=== PATIENT | male | born 1990 | race Caucasian/White ===

== ENCOUNTER 2017-12-26 20:02 | Emergency (ER) | payer OTHER ==
[2017-12-26 20:24] LABS: MUDS CUTOFF CONCENTRATIONS CUTOFF CONC BELOW:
[2017-12-26 20:35] LABS: BILIRUBIN,URINE NEGATIVE (NEGATIVE); GLUCOSE, URINE (UA) NEGATIVE (NEGATIVE); KETONES,URINE (UA) 15 mg/dL (NEGATIVE); LEUKOCYTE ESTERASE, URINE NEGATIVE (NEGATIVE); NITRITE,URINE NEGATIVE (NEGATIVE); OCCULT BLOOD,URINE NEGATIVE (NEGATIVE); PROTEIN,URINE NEGATIVE (NEGATIVE); UROBILINOGEN,URINE 0.2 (NORMAL) E.U./dL (NORMAL)
[2017-12-26 20:36] LABS: CLARITY,URINE CLEAR (CLEAR)
[2017-12-26 20:44] LABS: AMPHETAMINE SCREEN,URINE POSITIVE (NEGATIVE); BENZODIAZEPINES SCREEN, URINE NEGATIVE (NEGATIVE); COCAINE SCREEN URINE NEGATIVE (NEGATIVE); METHADONE SCREEN, URINE NEGATIVE (NEGATIVE); METHAMPHETAMINES SCREEN, URINE POSITIVE (NEGATIVE); OPIATE SCREEN, URINE NEGATIVE (NEGATIVE); OXYCODONE SCREEN, URINE NEGATIVE (NEGATIVE); PROPOXYPHENE SCREEN, URINE NEGATIVE (NEGATIVE); TRICYCLIC ANTIDEPRESSANT,URINE NEGATIVE (NEGATIVE)
[2017-12-26 20:45] LABS: BASOPHILS % (AUTO) 0.6 %; EOSINOPHILS # (AUTO) 0.3 10^3/uL (0.0-0.7); EOSINOPHILS % (AUTO) 4.4 %; HGB - HEMOGLOBIN 13.2 g/dL (14.0-18.0); LYMPHOCYTES # (AUTO) 1.8 10^3/uL (1.5-3.5); LYMPHOCYTES % (AUTO) 29.2 %; MEAN CORPUSCULAR HEMOGLOBIN 30.7 pg (27.0-31.0); MEAN CORPUSCULAR HGB CONC 33.4 g/dL (32.0-36.0); MEAN CORPUSCULAR VOLUME 91.8 fL (80.0-94.0); MEAN PLATELET VOLUME 8.1 fL (7.4-11.4); MONOCYTES # (AUTO) 0.8 10^3/uL (0.0-1.0); MONOCYTES % (AUTO) 12.3 %; NEUTROPHILS # (AUTO) 3.3 10^3/uL (1.5-6.6); NEUTROPHILS % (AUTO) 53.5 %; PLT - PLATELET COUNT 207 10^3/uL (130-450); RED BLOOD COUNT 4.28 10^6/uL (4.70-6.10); RED CELL DISTRIBUTION WIDTH 13.1 % (12.0-15.0); WHITE BLOOD COUNT 6.1 x10^3/uL (4.8-10.8)
[2017-12-26 21:01] LABS: ALBUMIN 4.6 g/dL (3.2-5.5); ALBUMIN/GLOBULIN RATIO 1.8 (1.0-2.2); ALKALINE PHOSPHATASE 46 IU/L (42-121); ALT ALANINE AMINOTRANSFERASE 18 IU/L (10-60); AST ASPARTATE AMINOTRANSFERASE 18 IU/L (10-42); BILIRUBIN,TOTAL 0.3 mg/dL (0.2-1.0); BUN - BLOOD UREA NITROGEN 17 mg/dL (6-20); CALCIUM 8.5 mg/dL (8.5-10.3); CARBON DIOXIDE - CO2 26 mmol/L (21-32); CHLORIDE 100 mmol/L (101-111); GFR - MDRD 90 (>89); GLUCOSE 104 mg/dL (70-100); LIPASE 24 U/L (22-51); SALICYLATE < 6.0 mg/dL; SODIUM 135 mmol/L (135-145); TOTAL PROTEIN 7.2 g/dL (6.7-8.2)
[2017-12-26 21:03] LABS: ACETAMINOPHEN < 10 ug/mL (10-30)
--- NOTE | 2017-12-26 21:27 | ED Physician Documentation ---
PD HPI MHE - Stated complaint Stated Complaint: MHE - Chief complaint Chief Complaint: MHE - History obtained from History obtained from: Patient, Family - History of Present Illness Primary symptom: Psychosis, Anxiety Timing - onset: How many weeks ago (2) Contributing factors: Substance abuse - drugs Similar symptoms before: Has not had sx before Recently seen: Not recently seen - Additional information Additional information: Patient is a 27 year old male who is presenting to the emergency department for delusions and agitation. According to patient and family, patient has had multiple episodes of hearing voices and erratic behavior. He does admit to using meth but he never had a problem with hearing voices in the past. Review of Systems Constitutional: denies: Fever, Chills Eyes: reports: Reviewed and negative GI: denies: Nausea, Vomiting Psychiatric: reports: Hallucinations, Anxiety, Insomnia. denies: Depressed, Suicidal, Homicidal Immunocompromised: denies: Immunocompromised PD PAST MEDICAL HISTORY - Past Medical History Past Medical History: No - Past Surgical History Past Surgical History: No - Present Medications Home Medications: Ambulatory Orders Medication Instructions Recorded Confirmed No Known Home Medications [No 12/26/17 12/26/17 Known Home Medications] - Allergies Allergies/Adverse Reactions: Allergies Allergy/AdvReac Type Severity Reaction Status Date / Time No Known Drug Allergies Allergy Verified 12/26/17 20:17 - Social History Does the pt smoke?: Yes Smoking Status: Current every day smoker Does the pt drink ETOH?: Yes Does the pt have substance abuse?: No Substance Use and Type: Meth - Immunizations Immunizations are current?: No - POLST Patient has POLST: No PD ED PE NORMAL - Vitals Vital signs reviewed: Yes - General General: Alert and oriented X 3, No acute distress - HEENT HEENT: Atraumatic - Neck Neck: Supple, no meningeal sign - Cardiac Cardiac: RRR - Respiratory Respiratory: No respiratory distress - Abdomen Abdomen: Non distended - Derm Derm: Normal color - Extremities Extremities: No deformity - Neuro Neuro: Alert and oriented X 3, No motor deficit, Normal speech Eye Opening: Spontaneous Motor: Obeys Commands Verbal: Oriented GCS Score: 15 PD ED PE EXPANDED - Psych Psych: Anxious, Auditory hallucinations, Delusions Results - Vitals Vitals: Vital Signs - 24 hr 12/26/17 20:10 Temperature 37.1 C Heart Rate 108 H Respiratory 18 Rate Blood Pressure 119/83 H O2 Saturation 98 Oxygen O2 Source Room air - Labs Labs: Laboratory Tests 12/26/17 12/26/17 12/26/17 20:15 20:15 20:39 WBC RBC Hgb Hct MCV MCH MCHC RDW Plt Count MPV Neut # Lymph # Anson # Eos # Baso # Absolute Nucleated RBC Nucleated RBC % Sodium 135 Potassium 3.8 Chloride 100 L Carbon Dioxide 26 Anion Gap 9.0 BUN 17 Creatinine 1.0 Estimated GFR (MDRD) 90 Glucose 104 H Calcium 8.5 Total Bilirubin 0.3 AST 18 ALT 18 Alkaline Phosphatase 46 Total Protein 7.2 Albumin 4.6 Globulin 2.6 Albumin/Globulin Ratio 1.8 Lipase 24 TSH Urine Color YELLOW Urine Clarity CLEAR Urine pH 6.0 Ur Specific [place] 1.025 Urine Protein NEGATIVE Urine Glucose (UA) NEGATIVE Urine Ketones 15 H Urine Occult Blood NEGATIVE Urine Nitrite NEGATIVE Urine Bilirubin NEGATIVE Urine Urobilinogen 0.2 (NORMAL) Ur Leukocyte Esterase NEGATIVE Ur Microscopic Review NOT INDICATED Urine Culture Comments NOT INDICATED Salicylates < 6.0 Urine Opiates Screen NEGATIVE Ur Oxycodone Screen NEGATIVE Urine Methadone Screen NEGATIVE Ur Propoxyphene Screen NEGATIVE Acetaminophen < 10 L Ur Barbiturates Screen NEGATIVE Ur Tricyclics Screen NEGATIVE Ur Phencyclidine Scrn NEGATIVE Ur Amphetamine Screen POSITIVE H U Methamphetamines Scrn POSITIVE H U Benzodiazepines Scrn NEGATIVE Urine Cocaine Screen NEGATIVE U Cannabinoids Screen NEGATIVE Ethyl Alcohol 88.0 12/26/17 12/26/17 12/26/17 20:39 20:39 22:53 WBC 6.1 RBC 4.28 L Hgb 13.2 L Hct 39.4 L MCV 91.8 MCH 30.7 MCHC 33.4 RDW 13.1 Plt Count 207 MPV 8.1 Neut # 3.3 Lymph # 1.8 Anson # 0.8 Eos # 0.3 Baso # 0.0 Absolute Nucleated RBC 0.00 Nucleated RBC % 0.0 Sodium Potassium Chloride Carbon Dioxide Anion Gap BUN Creatinine Estimated GFR (MDRD) Glucose Calcium Total Bilirubin AST ALT Alkaline Phosphatase Total Protein Albumin Globulin Albumin/Globulin Ratio Lipase TSH 0.76 Urine Color Urine Clarity Urine pH Ur Specific [place] Urine Protein Urine Glucose (UA) Urine Ketones Urine Occult Blood Urine Nitrite Urine Bilirubin Urine Urobilinogen Ur Leukocyte Esterase Ur Microscopic Review Urine Culture Comments Salicylates Urine Opiates Screen Ur Oxycodone Screen Urine Methadone Screen Ur Propoxyphene Screen Acetaminophen Ur Barbiturates Screen Ur Tricyclics Screen Ur Phencyclidine Scrn Ur Amphetamine Screen U Methamphetamines Scrn U Benzodiazepines Scrn Urine Cocaine Screen U Cannabinoids Screen Ethyl Alcohol 32.8 PD MEDICAL DECISION MAKING - ED course Complexity details: reviewed old records, reviewed results, re-evaluated patient , considered differential, d/w patient, d/w family, d/w client experience consultant ED course: Patient was seen and examined at bedside. labs were drawn and urine was collected. while meth was likely contributing to patient's situation an underlying psychiatric break could not be ruled out. [facility] was contacted to come evaluate the patient. patient was getting a bit anxious and was treated with zyprexa 5mg orally. After evaluation by [facility] patient was deemed voluntary after lengthy discussion with the patient and his family. patient had admitted to more frequent meth abuse and the family was unaware. Patient still wanted to talk to social work and stayed the night. Patient was medically clear and pending social work. Departure - Departure Clinical Impression: Methamphetamine abuse Condition: Stable Instructions: Abuse Meth Abuse and Addiction
[2017-12-26] MEDS ORDERED: OLANZapine ODT 5 MG TABLET TL STA (22:31)
[2017-12-27 08:45] VITALS: BP 106/71
--- NOTE | 2017-12-27 10:26 | ED Physician Documentation ---
ED Addendum - Addendum Addendum: 12/27/17 10:24 Patient seen by social work and he declined hospitalization or respite care. He is agreeable to counseling. I talked with him as well and unclear whether he is having psychiatric problems or he has had difficulty with sleep and also has been having some drug and alcohol use so may be having symptoms from that. I suggested with him to eat well, regular exercise, no drugs or alcohol, consider starting vitamin D daily, and to use Ativan at night for sleep just if needed for the next week or so. He should see how well he is feeling with those. He could also initiate counseling regarding some depression and substance abuse and was given references from the social worker [facility]. He denies any suicidal ideation.
== END 2017-12-27 10:35 | disposition home or self-care (01) ==
LOC: ED 20:02
DX: F15.10 Other stimulant abuse, uncomplicated (principal); F17.200 Nicotine dependence, unspecified, uncomplicated
CPT/HCPCS: 36415; 80053; 80306; 80307; 80320; 80329; 81003; 83690; 84443; 85025; 99283; 99284; A9270; 81001; 87086

== ENCOUNTER 2018-05-17 09:21 | Outpatient (CLI) | payer OTHER ==
[2018-05-17 13:03] LABS: BASOPHILS % (AUTO) 0.6 %; EOSINOPHILS # (AUTO) 0.1 10^3/uL (0.0-0.7); EOSINOPHILS % (AUTO) 2.2 %; HGB - HEMOGLOBIN 14.3 g/dL (14.0-18.0); LYMPHOCYTES # (AUTO) 1.1 10^3/uL (1.5-3.5); LYMPHOCYTES % (AUTO) 24.4 %; MEAN CORPUSCULAR HEMOGLOBIN 31.4 pg (27.0-31.0); MEAN CORPUSCULAR HGB CONC 34.2 g/dL (32.0-36.0); MEAN CORPUSCULAR VOLUME 91.8 fL (80.0-94.0); MONOCYTES # (AUTO) 0.6 10^3/uL (0.0-1.0); MONOCYTES % (AUTO) 11.8 %; NEUTROPHILS # (AUTO) 2.9 10^3/uL (1.5-6.6); RED BLOOD COUNT 4.55 10^6/uL (4.70-6.10); RED CELL DISTRIBUTION WIDTH 13.4 % (12.0-15.0); WHITE BLOOD COUNT 4.7 x10^3/uL (4.8-10.8)
[2018-05-17 13:17] LABS: THYROID STIMULATING HORMONE 1.63 uIU/mL (0.34-5.60)
[2018-05-17 13:25] LABS: FERRITIN 62.5 ng/mL (23.9-336.2)
[2018-05-17 13:28] LABS: FOLATE 13.45 ng/mL (5.90 - >24.8)
[2018-05-17 14:20] LABS: PLATELET MORPHOLOGY PLATELET CLUMPING (NORMAL)
[2018-05-17 14:22] LABS: RBC MORPHOLOGY (MULTIPLE) NORMAL APPEARANCE (NORMAL)
[2018-05-17 14:23] LABS: PLATELET ESTIMATE, MANUAL NORMAL (130-450,000) (NORMAL)
[2018-05-17 15:04] LABS: ALBUMIN 4.7 g/dL (3.2-5.5); ALBUMIN/GLOBULIN RATIO 1.6 (1.0-2.2); BILIRUBIN,TOTAL 0.7 mg/dL (0.2-1.0); CALCIUM 9.5 mg/dL (8.5-10.3); CREATININE 0.9 mg/dL (0.6-1.2); TOTAL PROTEIN 7.6 g/dL (6.7-8.2)
== END 2018-05-17 09:22 | disposition home or self-care (01) ==
LOC: LAB.WCP 09:21
PROVIDERS: ATTEND Family Medicine
DX: D64.9 Anemia, unspecified (principal); F10.20 Alcohol dependence, uncomplicated
CPT/HCPCS: 36415; 80053; 82607; 82728; 82746; 83540; 84443; 84466; 85025; 85044

== ENCOUNTER 2019-04-21 08:00 | Outpatient (CLI) | payer OTHER | END 2019-04-21 23:59 | disposition home or self-care (01) | LOC: LAB.R 08:00 | PROVIDERS: ATTEND Physician Assistant Medical | DX: J02.0 Streptococcal pharyngitis (principal) | CPT/HCPCS: 87070 ==

== ENCOUNTER 2020-05-19 08:48 | Emergency (ER) | payer OTHER ==
[2020-05-19 09:39] VITALS: BP 151/93
[2020-05-19] MEDS ORDERED: BUFFERED LIDOCAINE 10 ML SYRINGE SUBQ STA (09:47)
--- NOTE | 2020-05-19 09:48 | ED Physician Documentation ---
PD HPI UPPER EXT INJURY - Stated complaint Stated Complaint: LT THUMB LAC - Chief complaint Chief Complaint: Laceration - History obtained from History obtained from: Patient (29-year-old gentleman up-to-date on tetanus. He is right-hand dominant. He was at work and accidentally cut himself with a knife to the left hand just prior to arrival. No other injury. Pain is minimal.) PD PAST MEDICAL HISTORY - Past Surgical History Past Surgical History: No - Present Medications Home Medications: Ambulatory Orders Medication Instructions Recorded Confirmed Cholecalciferol (Vitamin D3) 2,000 unit PO DAILY #30 capsule 12/27/17 [Vitamin D] Lorazepam [Ativan] 1 mg PO Q8H PRN #10 tablet 12/27/17 - Allergies Allergies/Adverse Reactions: Allergies Allergy/AdvReac Type Severity Reaction Status Date / Time No Known Drug Allergies Allergy Verified 05/19/20 09:39 - Social History Does the pt smoke?: Yes Smoking Status: Current every day smoker Does the pt drink ETOH?: Yes Does the pt have substance abuse?: No - Immunizations Immunizations are current?: No - POLST Patient has POLST: No PD ED PE NORMAL - Vitals Vital signs reviewed: Yes - General General: Alert and oriented X 3, No acute distress - HEENT HEENT: PERRL, EOMI - Back Back: No CVA TTP, No spinal TTP - Extremities Extremities: Other (2 cm laceration on the proximal left thumb, palmar side at the level of the MCP. Normal neurovascular function at the tip on initial evaluation. Tendon function will be assessed after anesthetic.) - Neuro Neuro: Alert and oriented X 3, Normal speech Results - Vitals Vitals: Vital Signs - 24 hr 05/19/20 09:36 Temperature 36.7 C Heart Rate 117 H Respiratory 20 Rate Blood Pressure 151/93 H O2 Saturation 98 Oxygen O2 Source Room air Procedures - Laceration (location) L hand Length in cm: 2 Wound type: Linear, Into subcut fat Neurovascular status: Sensory intact, Motor intact Tendon involvement: Tendon intact Anesthesia: Lidocaine 1%, With bicarb Wound Preparation: Irrigated copiously NS Skin layer closure: Nylon, Interrupted, Size #-0 - enter number (4-0), Sutures - enter # (5) Other: Tetanus UTD Complexity: Simple Departure - Departure Disposition: 01 Home, Self Care Clinical Impression: Laceration Condition: Good Record reviewed to determine appropriate education?: Yes Instructions: ED Laceration Hand Comments: Come back for any signs of infection which would include: Redness, swelling, drainage, increased pain, or fevers. You can wash it soap and water. Keep it covered and moist with bacitracin ointment which is available over the counter; avoid neosporin. Follow-up with your physician in about 14 days for suture removal.
== END 2020-05-19 10:15 | disposition home or self-care (01) ==
LOC: ED 08:48
DX: S61.012A Laceration without foreign body of left thumb without damage to nail, initial encounter (principal); W26.0XXA Contact with knife, initial encounter; Y99.0 Civilian activity done for income or pay; F17.200 Nicotine dependence, unspecified, uncomplicated
CPT/HCPCS: 12001; 99281; 99283

== ENCOUNTER 2020-05-25 08:28 | Emergency (ER) | payer OTHER ==
[2020-05-25] MEDS ORDERED: ACETAMINOPHEN 325 MG TABLET PO STA (09:29)
[2020-05-25] MEDS ORDERED: IBUPROFEN 600 MG TABLET PO STA (09:29)
[2020-05-25] MEDS ORDERED: SULFAMETH/TRIMETH DS 800/160 MG TABLET PO STA (09:30)
--- NOTE | 2020-05-25 09:31 | ED Physician Documentation ---
PD HPI WOUND RECHECK - Stated complaint Stated Complaint: LT THUMB LAC SWELLING,REDNESS,PX - Chief complaint Chief Complaint: Laceration - Histroy obtained from History obtained from: Patient - History of Present Illness Location: Left Hand Timing - onset: How many weeks ago (had laceration of the hand a week ago with sutures. Started to have redness around the edge of it with faint white blister at edge of 2 suture holes yesterday. Tender at wound.) Associated symptoms: Redness. No: Swelling Similar symptoms before: Has not had sx before Recently seen: Emergency Dept (1 week ago) Review of Systems Constitutional: denies: Fever, Chills, Myalgias Neurologic: denies: Focal weakness, Numbness PD PAST MEDICAL HISTORY - Past Medical History Past Medical History: Yes Cardiovascular: None Respiratory: None Neuro: None Endocrine/Autoimmune: None GI: None : None HEENT: None Psych: Schizophrenia Musculoskeletal: None Derm: Eczema - Past Surgical History Past Surgical History: No - Present Medications Home Medications: Ambulatory Orders Medication Instructions Recorded Confirmed Cholecalciferol (Vitamin D3) 2,000 unit PO DAILY #30 capsule 12/27/17 [Vitamin D] Lorazepam [Ativan] 1 mg PO Q8H PRN #10 tablet 12/27/17 Naproxen 500 mg PO BID #15 tablet 05/25/20 Sulfamethox/Trimeth 800/160 1 each PO BID #14 tablet 05/25/20 [Bactrim Ds 800/160] - Allergies Allergies/Adverse Reactions: Allergies Allergy/AdvReac Type Severity Reaction Status Date / Time No Known Drug Allergies Allergy Verified 05/25/20 08:33 - Social History Does the pt smoke?: Yes Smoking Status: Current every day smoker Does the pt drink ETOH?: Yes ETOH Use: Liquor Does the pt have substance abuse?: No - Immunizations Immunizations are current?: Yes - POLST Patient has POLST: No PD ED PE NORMAL - Vitals Vital signs reviewed: Yes - General General: Alert and oriented X 3, No acute distress, Well developed/nourished - Derm Derm: Normal color, Warm and dry - Extremities Extremities: Other (left thumb with sutures intact, wound closed and edges adherent. There is some mild redness around the whole of the wound. At edge of 2 of the suture thread holes is small white superficial blister 2-3 mm size, c/w stitch abscess very superficially. ) - Neuro Neuro: Alert and oriented X 3, No motor deficit, No sensory deficit Results - Vitals Vitals: Vital Signs - 24 hr 05/25/20 05/25/20 08:33 09:37 Temperature 36.6 C 37.2 C Heart Rate 99 77 Respiratory 16 16 Rate Blood Pressure 126/79 117/74 O2 Saturation 99 100 Oxygen O2 Source Room air - Labs Labs: Microbiology 05/25/20 09:23 Wound Culture - Preliminary Hand - Left Procedures - Suture/staple Removal (location) left thumb Suture/staple removal: # sutures (all), Infected. No: Dehiscence, Retained FB Departure - Departure Disposition: 01 Home, Self Care Clinical Impression: Wound infection Condition: Stable Record reviewed to determine appropriate education?: Yes Instructions: ED Wound Check Sutr Removal Infec Prescriptions: Sulfamethox/Trimeth 800/160 [Bactrim Ds 800/160] 1 each PO BID #14 tablet Naproxen 500 mg PO BID #15 tablet Comments: Warm compresses to the area periodically or soaks to help improve blood flow and dry out the infection. Bactrim antibiotic twice daily for a week. Naproxen anti-inflammatory as well. Allow drainage to come out from the small hole. You can use the Steri-Strips on the rest of the sutured laceration. Recheck if not improved well over the next 2 to 3 days. The culture will result in about 2 days and will call if we need to change the antibiotics. Discharge Date/Time: 05/25/20 09:44
[2020-05-25 09:38] VITALS: BP 117/74
== END 2020-05-25 09:44 | disposition home or self-care (01) ==
LOC: ED 08:28
DX: T81.41XA Infection following a procedure, superficial incisional surgical site, initial encounter (principal); Y83.8 Other surgical procedures as the cause of abnormal reaction of the patient, or of later complication, without mention of misadventure at the time of the procedure; Z48.02 Encounter for removal of sutures; F17.200 Nicotine dependence, unspecified, uncomplicated
CPT/HCPCS: 87070; 87205; 99282; 99283; A9270; 87181

== ENCOUNTER 2020-12-18 20:24 | Outpatient (CLI) | payer OTHER | END 2020-12-18 20:25 | disposition EMS.NT | LOC: EMS 20:24 | DX: Z04.1 Encounter for examination and observation following transport accident (principal); M25.562 Pain in left knee ==

== ENCOUNTER 2020-12-18 21:20 | Emergency (ER) | payer OTHER ==
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
--- OUTSIDE RECORDS SUMMARY | 2020-12-18 22:05 | EXTERNAL MEDICAL SUMMARY RPT | Continuity of Care Document ---
:1990 Demographics Phone Unavailable Preferred Language Unknown Marital Status Unknown Congregational Affiliation Unknown Race Unknown Ethnic Group Unknown Author Organization [facility] Address [address] [place] [address] Phone Social History date description facility [phone]
[2020-12-18] MEDS ORDERED: BACITRACIN ZINC OINT 1 PACKET TOP STA (22:08)
[2020-12-18] MEDS ORDERED: KETOROLAC 60 MG/2 ML VIAL IM STA (22:11)
[2020-12-18 23:20] VITALS: BP 136/75
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
== END 2020-12-18 23:19 | disposition home or self-care (01) ==
LOC: ED 21:20
DX: S80.02XA Contusion of left knee, initial encounter (principal); V13.4XXA Pedal cycle driver injured in collision with car, pick-up truck or van in traffic accident, initial encounter; Y93.55 Activity, bike riding; M25.532 Pain in left wrist; F17.200 Nicotine dependence, unspecified, uncomplicated
CPT/HCPCS: 73100; 73564; 96372; 99284; A9270

== ENCOUNTER 2020-12-23 18:39 | Outpatient (CLI) | payer OTHER ==
--- NOTE | 2020-12-23 16:14 | XRAY Report ---
PROCEDURE: Knee 2 View BILAT INDICATIONS: NON-TRAUMATIC RUPTURE OF TENDON OF L PATELLA TECHNIQUE: 2 views of the left and right knee(s) were acquired. COMPARISON: None. FINDINGS: No fracture identified. On the left, no definite joint effusion. Anterior soft tissue swelling. On the right, no joint space narrowing. Trace joint effusion. IMPRESSION: Left knee anterior soft tissue swelling. This could be further assessed with MRI. Trace right knee effusion. Reviewed by: Alfonzo Irwin MD on 12/23/2020 4:13 PM PDT Approved by: Alfonzo Irwin MD on 12/23/2020 4:13 PM PDT Station ID: [id number]
== END 2020-12-23 23:59 | disposition home or self-care (01) ==
LOC: DI.N 18:39
PROVIDERS: ATTEND Physician Assistant
DX: M25.462 Effusion, left knee (principal)

== ENCOUNTER 2021-01-07 13:40 | Emergency (ER) | payer OTHER ==
[2021-01-07] MEDS ORDERED: BUFFERED LIDOCAINE 10 ML SYRINGE SUBQ STA (14:02)
[2021-01-07] MEDS ORDERED: TETANUS/DIPHTHERIA/PERTUSSIS 0.5 ML SYRINGE IM ONE (14:02)
[2021-01-07] MEDS ORDERED: BACITRACIN ZINC OINT 1 PACKET TOP STA (14:02)
--- NOTE | 2021-01-07 14:05 | ED Physician Documentation ---
History of Present Illness - Stated complaint Stated Complaint: RT INDEX INJURY - Chief complaint Chief Complaint: Laceration - Additonal information Additional information: 30-year-old male presents emergency department for evaluation of the right distal index finger laceration sustained when using a skill saw. He has a laceration on the radial side distal to the DIP that extends into the nailbed. Unknown last tetanus. Patient is right-hand dominant. His distal fingertip is numb though flexion extension against resistance is preserved. Review of Systems Constitutional: reports: Reviewed and negative Eyes: reports: Reviewed and negative Nose: reports: Reviewed and negative Throat: reports: Reviewed and negative Cardiac: reports: Reviewed and negative Respiratory: reports: Reviewed and negative GI: reports: Reviewed and negative : reports: Reviewed and negative Skin: reports: Laceration (s) (Right index finger) PD PAST MEDICAL HISTORY - Past Medical History Past Medical History: Yes Cardiovascular: None Respiratory: None Neuro: None Endocrine/Autoimmune: None GI: None : None HEENT: None Psych: Schizophrenia, ADD/ADHD Musculoskeletal: None Derm: Eczema - Past Surgical History Past Surgical History: No - Present Medications Home Medications: Ambulatory Orders Medication Instructions Recorded Confirmed Atomoxetine HCl [Strattera] 40 mg PO DAILY PM 12/18/20 12/18/20 Atomoxetine HCl [Strattera] 80 mg PO DAILY 12/18/20 12/18/20 Ibuprofen [Motrin] 600 mg PO Q6H PRN #30 tab 12/18/20 Bacitracin Zinc Oint 1 applic TOP BID #1 gm 01/07/21 - Allergies Allergies/Adverse Reactions: Allergies Allergy/AdvReac Type Severity Reaction Status Date / Time quetiapine [From Seroquel] AdvReac Unknown Verified 01/07/21 13:45 - Social History Does the pt smoke?: No Smoking Status: Never smoker Does the pt drink ETOH?: No Does the pt have substance abuse?: No - Immunizations Immunizations are current?: Yes - POLST Patient has POLST: No PD ED PE EXPANDED - Extremities Extremities: Right finger(s) (1.5 cm laceration distal index finger radial side distal to the DIP. dital tip with numbness. normal flexion/extension against resistance) Results - Vitals Vitals: Vital Signs - 24 hr 01/07/21 13:45 Temperature 36.5 C Heart Rate 89 Respiratory 16 Rate Blood Pressure 132/70 H O2 Saturation 98 Oxygen O2 Source Room air Procedures - Laceration (location) right index finger Wound type: Linear, Into subcut fat, Clean Neurovascular status: Motor intact, Vascular intact. No: Sensory intact Tendon involvement: Tendon intact Anesthesia: Lidocaine 1% Wound preparation: Chlorhexadine, Irrigated copiously NS Skin layer closure: Interrupted, Size #-0 - enter number (4), Sutures - enter # (3) Other: Patient tolerated well, No complications, Tetanus UTD, Other (Distal tip radial side remains numb both before and after procedure) PD MEDICAL DECISION MAKING - ED course Complexity details: reviewed results, re-evaluated patient, d/w patient ED course: 30-year-old male presents emergency department for evaluation of a right distal index finger laceration sustained when using a skill saw at his job. Laceration is on the radial side of the digit. The distal tip is somewhat numb therefore I do suspect he likely has lacerated the nerve. However he has preserved flexion extension and no evidence of tendon injury. X-ray did not reveal any fracture. Tetanus was updated today. Wound was closed in with 3 sutures. Routine wound care and emergent return precautions discussed. 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 [employer] work excuse given as well as completing appropriate L&I paperwork. Departure - Departure Disposition: 01 Home, Self Care Clinical Impression: Finger laceration Qualifiers: Encounter type: initial encounter Finger: index finger Damage to nail status: without damage Foreign body presence: without foreign body Laterality: right Qualified Code(s): S61.210A - Laceration without foreign body of right index finger without damage to nail, initial encounter Condition: Stable Record reviewed to determine appropriate education?: Yes Instructions: ED Laceration Hand Prescriptions: Bacitracin Zinc Oint 1 applic TOP BID #1 gm Comments: Your suture should be removed in 7 to 10 days. In 24 hours you may remove the dressing wash gently with warm soap and water, apply any antibiotic ointment and a simple bandage. Your tetanus is up-to-date. Please attempt to keep your wound clean and dry. Do not submerge it in dirty dishwater or bath water. Return to the emergency department if you have any concerns of infection such as redness, fevers milky drainage increased pain. 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 You are cleared to return to work without restrictions on 17 January. Therefore you will miss 5 days of work next week.
--- NOTE | 2021-01-07 14:15 | XRAY Report ---
PROCEDURE: Finger(s) RT INDICATIONS: laceration after skill saw TECHNIQUE: One view of right hand and 2 views of the second finger(s) acquired. COMPARISON: None FINDINGS: Bones: No fractures or dislocations. No suspicious bony lesions. Soft tissues: Laceration over radial aspect of distal second digit is seen at the level of second di stal phalangeal tuft. No suspicious soft tissue calcifications. IMPRESSION: Lateral distal second finger laceration. No acute second finger fracture or dislocation. No radiopaqu e foreign body. Reviewed by: Aki Ford MD on 01/07/2021 2:14 PM PDT Approved by: Aki Ford MD on 01/07/2021 2:14 PM PDT Station ID: [id number]
[2021-01-07 15:07] VITALS: BP 118/70
== END 2021-01-07 15:07 | disposition home or self-care (01) ==
LOC: ED 13:40
DX: S61.310A Laceration without foreign body of right index finger with damage to nail, initial encounter (principal); W31.2XXA Contact with powered woodworking and forming machines, initial encounter; Y93.H3 Activity, building and construction; Y99.0 Civilian activity done for income or pay; R20.0 Anesthesia of skin; Z23 Encounter for immunization
CPT/HCPCS: 1040M; 12001; 73140; 90471; 90715; 99281; 99283; A9270

== ENCOUNTER 2021-01-14 11:06 | Emergency (ER) | payer OTHER ==
--- NOTE | 2021-01-14 11:55 | ED Physician Documentation ---
PD HPI WOUND RECHECK - Stated complaint Stated Complaint: SUTURE REMOVAL - Chief complaint Chief Complaint: Laceration - History of Present Illness Location: Right Hand Timing - onset: How many days ago (7) Associated symptoms: No: Fever, Redness, Swelling, Drainage Similar symptoms before: Diagnosis (laceration) Recently seen: Emergency Dept - Additional information Additional information: 34-year-old male was seen in the emergency department 7 days ago with a laceration to his index finger from a skill saw. Laceration was deep and was repaired there was not much in the way of tissue loss. 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 Review of Systems Constitutional: denies: Fever Respiratory: denies: Cough GI: denies: Vomiting PD PAST MEDICAL HISTORY - Past Medical History Cardiovascular: None Respiratory: None Neuro: None Endocrine/Autoimmune: None GI: None : None HEENT: None Psych: Schizophrenia, ADD/ADHD Musculoskeletal: None Derm: Eczema - Past Surgical History Past Surgical History: No - Present Medications Home Medications: Ambulatory Orders Medication Instructions Recorded Confirmed Atomoxetine HCl [Strattera] 40 mg PO DAILY PM 12/18/20 01/14/21 Atomoxetine HCl [Strattera] 80 mg PO DAILY 12/18/20 01/14/21 - Allergies Allergies/Adverse Reactions: Allergies Allergy/AdvReac Type Severity Reaction Status Date / Time quetiapine [From Seroquel] AdvReac Unknown Verified 01/14/21 11:22 - Social History Does the pt smoke?: No Smoking Status: Never smoker Does the pt drink ETOH?: No Does the pt have substance abuse?: No - Immunizations Immunizations are current?: Yes - POLST Patient has POLST: No PD ED PE NORMAL - Vitals Vital signs reviewed: Yes (normal ) - General General: Alert and oriented X 3, No acute distress, Well developed/nourished - HEENT HEENT: Atraumatic, PERRL, EOMI - Respiratory Respiratory: No respiratory distress - Derm Derm: Normal color, Warm and dry, No rash - Extremities Extremities: No deformity, Other (There is a 2 cm laceration to the right index finger which has been repaired there are 3 sutures remaining and wound does not appear completely healed.) - Neuro Neuro: Alert and oriented X 3, air filler 2-12 intact, No motor deficit, No sensory deficit, Normal speech Eye Opening: Spontaneous Motor: Obeys Commands Verbal: Oriented GCS Score: 15 - Psych Psych: Normal mood, Normal affect Results - Vitals Vitals: Vital Signs - 24 hr 01/14/21 01/14/21 11:19 12:12 Temperature 36.3 C L 36.7 C Heart Rate 80 73 Respiratory 16 18 Rate Blood Pressure 118/66 116/70 O2 Saturation 99 100 Oxygen O2 Source Room air PD MEDICAL DECISION MAKING - ED course Complexity details: considered differential, d/w patient ED course: After examination of the patient's wound and 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 Departure - Departure Disposition: 01 Home, Self Care Clinical Impression: Visit for wound check Condition: Stable Instructions: ED Stap Removal No Complication Follow-Up: RAJESH MARTINEZ PA-C [Primary Care Provider] - Comments: Today it looks like the sutures should stay in about another 4 days. You can remove them your self going to follow-up with your regular doctor or come back here and see us. Discharge Date/Time: 01/14/21 12:15
[2021-01-14 12:13] VITALS: BP 116/70
== END 2021-01-14 12:15 | disposition home or self-care (01) ==
LOC: ED 11:06
DX: Z48.00 Encounter for change or removal of nonsurgical wound dressing (principal); S61.210D Laceration without foreign body of right index finger without damage to nail, subsequent encounter; W31.2XXD Contact with powered woodworking and forming machines, subsequent encounter
CPT/HCPCS: 99281; 99282

== ENCOUNTER 2023-12-24 13:15 | Emergency (ER) | payer MEDICAID, OTHER ==
[2023-12-24 13:30] VITALS: BP 124/82; O2SAT 98
--- NOTE | 2023-12-24 13:47 | ED Physician Documentation ---
PD HPI SKIN - Stated complaint Stated Complaint: UNWELL,SKIN IRRITATION - Chief complaint Chief Complaint: Wound - History obtained from History obtained from: Patient - Additional information Additional information: The pt comes to the ED with CC of multiple scabbed lesions. He states they itch, and nothing seems to get rid of them. He admits to picking at them a lot because of the itching. He does admit to "being in an environment with meth", and alludes to the fact that he sometimes uses, though he does not say this directly. The pt states sometimes the lesions start as pimples and then he scratches the tops off. No other complaints at this time. PD PAST MEDICAL HISTORY - Past Medical History Cardiovascular: None Respiratory: None Neuro: None Endocrine/Autoimmune: None GI: None : None HEENT: None Psych: Schizophrenia, ADD/ADHD Musculoskeletal: None Derm: Eczema - Past Surgical History Past Surgical History: No - Present Medications Home Medications: Ambulatory Orders Medication Instructions Recorded Confirmed Mupirocin 2% Oint [Bactroban 2% 1 applic TOP BID #50 gm 12/24/23 Oint] - Allergies Allergies/Adverse Reactions: Allergies Allergy/AdvReac Type Severity Reaction Status Date / Time quetiapine [From Seroquel] AdvReac Unknown Verified 12/24/23 13:25 - Social History Does the pt smoke?: No Smoking Status: Never smoker Does the pt drink ETOH?: No Does the pt have substance abuse?: No - Immunizations Immunizations are current?: Yes - POLST Patient has POLST: No PD ED PE NORMAL - Vitals Vital signs reviewed: Yes - General General: Alert and oriented X 3, No acute distress, Well developed/nourished - HEENT HEENT: Atraumatic, PERRL, EOMI, Moist mucous membranes - Neck Neck: Supple, no meningeal sign - Cardiac Cardiac: RRR, No murmur - Respiratory Respiratory: No respiratory distress, Clear bilaterally - Derm Derm: Normal color, Warm and dry, Other (Multiple scabbed lesions in various forms of healing, with pink new skin and scarring around, indicating chronic picking.) - Extremities Extremities: No deformity - Neuro Neuro: Alert and oriented X 3 - Psych Psych: Normal mood, Normal affect Results - Vitals Vitals: Oxygen O2 Source Room air PD Medical Decision Making - ED course Complexity details: considered differential, d/w patient ED course: I have d/w pt that his lesions are most consistent with chronic picking, 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 I have d/w the pt that there is not much to be done for this, except get help with the meth use and perhaps use some ant ibacterial ointment. I have prescribed him mupirocin. We have discussed the need for derm follow-up if he would like a more specialized look at his skin. Departure - Departure Disposition: 01 Home, Self Care Clinical Impression: Skin lesions, generalized, Picking own skin Condition: Stable Instructions: ED Dermatitis Non Specific Rash Prescriptions: Mupirocin 2% Oint [Bactroban 2% Oint] 1 applic TOP BID #50 gm Comments: It is not clear what is causing your skin lesions, but it does appear that you have been picking at them quite a bit. Methamphetamine certainly do not help with this, and the picking can keep the lesions going. The best treatment is to leave your skin alone and this can be helped by using a hypoallergenic have lesions. You may also apply the ointment prescribed. Please pepper picker your prescription at the [facility] pharmacy in [place] and apply this, as sometimes, lesions that are picked up can develop festering with your normal skin bacteria. Please follow-up with dermatology for further evaluation. Forms: PCP List Discharge Date/Time: 12/24/23 13:53
== END 2023-12-24 13:53 | disposition home or self-care (01) ==
LOC: ED 13:15
DX: L98.9 Disorder of the skin and subcutaneous tissue, unspecified (principal); F42.4 Excoriation (skin-picking) disorder
CPT/HCPCS: 99282; 99283

== ENCOUNTER 2024-03-27 11:02 | Emergency (ER) | payer MEDICAID ==
[2024-03-27] MEDS: CETIRIZINE 10 MG TABLET PO STA (11:43)
--- NOTE | 2024-03-27 11:44 | ED Physician Documentation ---
PD HPI HEENT - Stated complaint Stated Complaint: THROAT/JAW PAIN - Chief complaint Chief Complaint: Heent - Additional information Additional information: 33-year-old male with history of schizophrenia reports to the emergency department for sore throat and foreign body sensation to his face. Patient reports that he just relapsed on meth Has not used for couple days now. He says that he continuously rubs his face and is having skin issues from repeatedly rubbing his face. 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 Patient also reports that he has not been sleeping well and was up all night last night he is not currently taking any medications for his schizophrenia. PD PAST MEDICAL HISTORY - Past Medical History Past Medical History: Yes Cardiovascular: None Respiratory: None Neuro: None Endocrine/Autoimmune: None GI: None : None HEENT: None Psych: Schizophrenia, ADD/ADHD Musculoskeletal: None Derm: Eczema - Past Surgical History Past Surgical History: No - Present Medications Home Medications: Ambulatory Orders Medication Instructions Recorded Confirmed No Known Home Medications 03/27/24 03/27/24 - Allergies Allergies/Adverse Reactions: Allergies Allergy/AdvReac Type Severity Reaction Status Date / Time quetiapine [From Seroquel] AdvReac Unknown Verified 03/27/24 11:15 - Social History Does the pt smoke?: No Smoking Status: Never smoker Does the pt drink ETOH?: No Does the pt have substance abuse?: Yes Substance Use and Type: Meth - Immunizations Immunizations are current?: Yes - POLST Patient has POLST: No PD ED PE NORMAL - Vitals Vital signs reviewed: Yes - General General: Alert and oriented X 3, No acute distress, Well developed/nourished - HEENT HEENT: Atraumatic, PERRL, Moist mucous membranes, Pharynx benign - Cardiac Cardiac: RRR, No murmur, No gallop, Strong equal pulses - Respiratory Respiratory: No respiratory distress - Derm Derm: Other (superficial abrasions to bridge of nose and forehead from rubbing) - Neuro Neuro: Alert and oriented X 3 PD ED PE EXPANDED - Psych Psych: Poor eye contact, Anxious, Flight of ideas Results - Vitals Vitals: Vital Signs - 24 hr 03/27/24 03/27/24 11:17 12:21 Temperature 36.8 C 36.7 C Heart Rate 78 75 Respiratory 16 16 Rate Blood Pressure 117/78 115/75 O2 Saturation 100 99 Oxygen O2 Source Room air - Labs Labs: Laboratory Tests 03/27/24 03/27/24 11:24 11:24 Nasal Adenovirus (PCR) NOT DETECTED Nasal B. parapertussis DNA (PCR) NOT DETECTED Nasal Coronavir 229E PCR NOT DETECTED Nasal Coronavir HKU1 PCR NOT DETECTED Nasal Coronavir NL63 PCR NOT DETECTED Nasal Coronavir OC43 PCR NOT DETECTED Nasal Enterovir/Rhinovir PCR NOT DETECTED Nasal Influenza B PCR NOT DETECTED Nasal Influenza A PCR NOT DETECTED Nasal Parainfluen 1 PCR NOT DETECTED Nasal Parainfluen 2 PCR NOT DETECTED Nasal Parainfluen 3 PCR NOT DETECTED Nasal Parainfluen 4 PCR NOT DETECTED Nasal RSV (PCR) NOT DETECTED Nasal B.pertussis DNA PCR NOT DETECTED Nasal C.pneumoniae (PCR) NOT DETECTED Adi Human Metapneumo PCR NOT DETECTED Nasal M.pneumoniae (PCR) NOT DETECTED Nasal SARS-CoV-2 (PCR) NOT DETECTED Group A Strep Rapid Negative PD Medical Decision Making - ED course ED course: 33-year-old male presents emergency department for concerns of scratchy throat. Patient also endorses and recent methamphetamine use respiratory swab as well as group A strep was completed and everything was negative. He was given some Zyrtec as he may be experiencing some seasonal allergy symptoms. He was strongly encouraged to quit using methamphetamine and develop with primary care provider and strongly encouraged to get back onto antipsychotic medications for his schizophrenia. Patient was offered a social work consult but he kindly declined at this point time says that he has a job that he does not want to jeopardize and just wanted to come in today for further evaluation of his scratchy throat. He is told to try taking [id number] antiallergy medication and to follow-up with primary care provider if he continues to experience scratchy throat. All questions answered return precautions given patient safe for discharge. Departure - Departure Disposition: 01 Home, Self Care Clinical Impression: Allergies Instructions: ED Allergy Seasonal Comments: I would strongly encourage you to get established with your primary care provider again and get started back on your schizophrenia medications. You tested negative for rapid group A strep and I will call you with the results of your respiratory panel. We offered you social work to get established with resources to help with not relapsing on meth but you declined if you change your mind please come back. For your throat scratching we do have a high pollen count I would encourage you to take a daily Zyrtec or [id number] allergy medication to see if this helps. We have given you a Zyrtec pill here in the emergency department. Forms: PCP List Discharge Date/Time: 03/27/24 12:21
[2024-03-27 12:07] LABS: RAPID STREP SCREEN Negative (Negative)
[2024-03-27 12:36] VITALS: BP 115/75; O2SAT 99
[2024-03-27 12:47] LABS: B. PARAPERTUSSIS- RESP PCR PAN NOT DETECTED; B. PERTUSSIS- RESP PCR PANEL NOT DETECTED; C. PNEUMONIAE- RESP PCR PANEL NOT DETECTED; CORONAVIRUS 229E-RESP PCR NOT DETECTED; CORONAVIRUS HKU1-RESP PCR NOT DETECTED; CORONAVIRUS NL63-RESP PCR NOT DETECTED; CORONAVIRUS OC43-RESP PCR NOT DETECTED; HUMAN METAPNEUMOVIRUS NOT DETECTED; INFLUENZA A- RESP PCR PANEL NOT DETECTED; INFLUENZA B - RESP PCR PANEL NOT DETECTED; M. PNEUMONIAE- RESP PCR PANEL NOT DETECTED; PARAINFLUENZA VIRUS 1 NOT DETECTED; PARAINFLUENZA VIRUS 2 NOT DETECTED; PARAINFLUENZA VIRUS 3 NOT DETECTED; PARAINFLUENZA VIRUS 4 NOT DETECTED; RHINOVIRUS/ENTEROVIRUS NOT DETECTED; RSV- RESP PCR PANEL NOT DETECTED; SARS-CoV-2 -RESP PCR PANEL NOT DETECTED
== END 2024-03-27 12:21 | disposition home or self-care (01) ==
LOC: ED 11:02
DX: T78.40XA Allergy, unspecified, initial encounter (principal); S00.31XA Abrasion of nose, initial encounter; S00.81XA Abrasion of other part of head, initial encounter; X58.XXXA Exposure to other specified factors, initial encounter
CPT/HCPCS: 87070; 87430; 87633; 99283; A9270; 87275; 87276